=== PATIENT | male | born 1960 | race Caucasian/White ===

== ENCOUNTER 2016-05-23 11:37 | Observation (INO) | payer OTHER ==
[~2016-05-23] VITALS: Ht 188 cm; Wt 102.5 kg
[~2016-05-23 11:37] MED LIST: ALLOPURINOL100 MG PO; ESCITALOPRAM OX20 MG PO; HYDROCODON-ACE1 EAC7 PO; LIPITOR20 MG PO; NEXIUM40 MG PO; TELMISARTAN40 MG PO; TRAZODONE HCL50 MG PO; ZYLOPRIM300 MG PO
[2016-05-23] MEDS ORDERED: MICARDIS80 MG PO (13:20)
[2016-05-23] MEDS ORDERED: ALLOPURINOL300 MG PO (13:21)
[2016-05-23 14:36] LABS: HEMATOCRIT 47.8 % (38.0-50.0); MCH 28.4 PG (29.0-34.0); MCHC 34.3 G/DL (30.0-36.0); MCV 82.8 FL (86-99); MEAN PLAT.VOLUME 10.6 uM^3 (9.0-12.4); PLATELET COUNT 224 K/uL (156-360); RBC DIS.WIDTH-CV 14.2 % (11.8-14.6); RBC DIS.WIDTH-SD 42.7 % (39-53); RED BLOOD COUNT 5.77 M/uL (4.00-5.50); WHITE BLOOD COUNT 8.9 K/uL (4.1-10.2)
[2016-05-23 14:46] LABS: CHLORIDE 103 mEq/L (99-109); POTASSIUM 3.6 mEq/L (3.7-5.4); SODIUM 140 mEq/L (136-147)
[2016-05-23 14:48] LABS: GLUCOSE 97 mg/dL (70-99)
[2016-05-23 14:49] LABS: ANION GAP 10 MEQ/L (2-14)
[2016-05-23 14:52] LABS: GFR ESTIMATE (CALCULATED) > 59 mL/min/
[2016-05-23 14:53] LABS: UREA NITROGEN (BUN) 17 mg/dL (9-23)
[2016-05-23 14:57] LABS: TROP-I INTERPRETATION NEGATIVE; TROPONIN-I < 0.01 ng/mL (0.0-0.30)
[2016-05-23] MEDS ORDERED: LORAZEPAM1 MG PO (16:50)
[2016-05-23 21:39] LABS: TROP-I INTERPRETATION NEGATIVE; TROPONIN-I < 0.01 ng/mL (0.0-0.30)
[2016-05-24 03:03] VITALS: BP 117/74
[2016-05-24 03:31] LABS: TROP-I INTERPRETATION NEGATIVE; TROPONIN-I < 0.01 ng/mL (0.0-0.30)
[2016-05-24 06:37] LABS: HEMATOCRIT 43.6 % (38.0-50.0); MCH 28.4 PG (29.0-34.0); MCHC 33.3 G/DL (30.0-36.0); MCV 85.3 FL (86-99); MEAN PLAT.VOLUME 10.9 uM^3 (9.0-12.4); PLATELET COUNT 190 K/uL (156-360); RBC DIS.WIDTH-CV 14.3 % (11.8-14.6); RBC DIS.WIDTH-SD 44.3 % (39-53); RED BLOOD COUNT 5.11 M/uL (4.00-5.50); WHITE BLOOD COUNT 8.3 K/uL (4.1-10.2)
[2016-05-24 07:01] LABS: ALKALINE PHOSPHATASE 51 IU/L (3-129); ANION GAP 8 MEQ/L (2-14); CHLORIDE 105 MEQ/L (99-109); GFR ESTIMATE (CALCULATED) > 59 mL/min/; GLUCOSE 101 mg/dL (70-99); POTASSIUM 4.2 MEQ/L (3.7-5.4); SAMPLE HEMOLYSIS CHECK 0; SAMPLE ICTERIC CHECK 0; SAMPLE LIPEMIA CHECK 0; SODIUM 139 MEQ/L (136-147); UREA NITROGEN (BUN) 16 mg/dL (9-23)
[2016-05-24 07:58] VITALS: BP 122/74
[2016-05-24] MEDS ORDERED: ASPIRIN EC325 MG PO (11:28)
[2016-05-24 11:51] VITALS: BP 172/87
[2016-05-24 12:32] VITALS: BP 150/78
== END 2016-05-24 13:12 | disposition home or self-care (01) ==
LOC: EME 11:37 → EDOF 19:21 → 5WEST 19:21 → EDOF 19:21 → 5WEST 05-24 02:44
PROVIDERS: Internal Medicine; Physician Assistant
DX: R07.9 Chest pain, unspecified (principal); I16.0 Hypertensive urgency; R51 Headache; K21.9 Gastro-esophageal reflux disease without esophagitis; E78.5 Hyperlipidemia, unspecified; Z87.891 Personal history of nicotine dependence; Z82.49 Family history of ischemic heart disease and other diseases of the circulatory system
CPT/HCPCS: 70450; 71020; 80048; 80048 91; 80053; 83735; 84443; 84484; 85027; 93005; 99281; 99285; G0378; J0360; J1644